=== PATIENT | male | born 1945 | race Caucasian/White ===

== ENCOUNTER → 2022-06-27 14:24 | Outpatient (BNVA) | payer MEDICARE, SELFPAY | PROVIDERS: PCP Physician Assistant; Visit Provider Internal Medicine | DX: M48.062 Spinal stenosis, lumbar region with neurogenic claudication (principal) | CPT/HCPCS: 99202 ==

== ENCOUNTER 2022-07-12 12:35 | Outpatient (REF) | payer MEDICARE, SELFPAY ==
--- NOTE | ~2022-07-12 | MR_ITS ---
EXAMINATION: MR LUMBAR SPINE WITHOUT CONTRAST CLINICAL INFORMATION: M48.062 - Spinal stenosis, lumbar region with neurogenic claudication. COMPARISON: None TECHNIQUE: MRI of the lumbar spine was obtained using routine sequences without contrast. FINDINGS: Vertebral body heights are normal. There is minimal anterolisthesis of L4 on L5 (2 mm). No additional spondylolisthesis. Bone marrow signal is normal aside from Schmorl's nodes at the superior endplate of L3 and the superior and inferior endplates of L4. Minimal degenerative Modic type II marrow change at L5-S1. There is moderate facet arthropathy at the L4-L5 level bilaterally. More mild facet arthropathy elsewhere in the lumbar spine. There is transitional anatomy with small riblets at the L1 level. A large cyst at the right kidney is only partially imaged on this study, measuring at least 6 cm in diameter. The imaged portion is simple in appearance. No recommended imaging followup. Additional renal cysts are also partially imaged and are simple in appearance. No acute intrapelvic findings. Axial levels: T12-L1: Normal L1-L2: Minimal degenerative disc disease. No central canal or neural foraminal stenosis. Minimal facet arthropathy. L2-L3: Mild degenerative disc disease and facet arthropathy. A mild disc bulge produces mild indentation of the ventral thecal sac without significant stenosis. No significant neural foraminal encroachment. L3-L4: Xihs-qi-dstiwaff degenerative disc disease with a generalized disc bulge that combines with the dxig-xt-uapgtvsa facet arthropathy and ligamentum flavum hypertrophy to produce nanmcqxc-fr-slyjpl central canal stenosis with near-complete effacement of the fluid from the thecal sac. There is associated impingement of the traversing L4 nerve roots in the subarticular zones. The disc bulge minimally narrows the inferior aspects of the neural foramina without significant mass effect on the exiting left L3 nerve root. The right L3 nerve root abuts the disc bulge in the far lateral position with minimal mass effect. L4-L5: There is moderate degenerative disc disease at L4-L5 with loss of intervertebral disc height and a diffuse disc bulge as well as ovdmpquu-wr-vjorna facet arthropathy. The disc bulge, facet arthropathy, and mild ligamentum thickening produce tcsj-aj-yjispyyi central canal stenosis. There is fhbw-wj-yhffkoes associated mass effect upon the bilateral traversing L5 nerve roots in the subarticular zones, left greater than right. Mild bilateral neural foraminal stenosis are produced by the facet osteophytes and foraminal components of the disc bulge. L5-S1: Ccfo-tp-rmygypda degenerative disc disease is asymmetric to the left. There is a diffuse disc osteophytic bulge that indents the ventral thecal sac producing minimal central canal narrowing. There is qrng-pe-lvpdollw bilateral neural foraminal encroachment, left side greater than right, produced by the disc osteophyte complexes. MR/MR lumbar spine wo con IMPRESSION: 1. Lqnxsqon-qc-plituw central canal stenosis at L3-L4 due to a generalized disc bulge, facet arthropathy, and ligamentum flavum thickening. 2. Wloe-gk-phsiuild central canal stenosis at L4-L5 3. Xagd-gf-eecaupqr bilateral neural foraminal encroachment at L5-S1, left side greater than right. 4. Abyb-zk-zffzpafe degenerative disc disease at L3-L4, L4-L5, and L5-S1.
== END 2022-07-12 12:36 | disposition home or self-care (01) ==
LOC: HO.MRI 12:35
PROVIDERS: Visit Provider Internal Medicine
DX: M48.062 Spinal stenosis, lumbar region with neurogenic claudication (principal)
CPT/HCPCS: 72148

== ENCOUNTER → 2022-08-12 11:22 | Outpatient (BNVA) | payer MEDICARE, SELFPAY | PROVIDERS: Visit Provider Internal Medicine | DX: M48.062 Spinal stenosis, lumbar region with neurogenic claudication (principal) | CPT/HCPCS: 99212 ==